=== PATIENT | male | born 1990 | race Caucasian/White ===

== ENCOUNTER 2021-06-24 15:44 | Emergency (ER) | payer OTHER ==
[~2021-06-24] VITALS: Ht 175.3 cm; Wt 75.0 kg
[2021-06-24 18:06] LABS: BASOPHILS % 0.3 % (0.0-2.0); EOSINOPHILS % 0.1 % (0.0-5.0); HEMATOCRIT. 51.5 % (42.0-52.0); HEMOGLOBIN. 17.7 g/dL (14.0-18.0); LYMPHOCYTES % 13.8 % (20.0-50.0); MEAN CORPUSCULAR HEMOGLOBIN 31.2 pg (28.0-32.0); MEAN PLATELET VOLUME 9.1 fl (7.4-10.4); MONOCYTES % 4.6 % (2.0-8.0); NEUTROPHILS % 81.2 % (40.0-76.0); PLATELET 355 x1000/uL (130-400); RED BLOOD CELL COUNT 5.67 mill/uL (4.7-6.1); RED CELL DISTRIBUTION WIDTH 13.5 % (11.6-14.6)
[2021-06-24 18:12] LABS: CHLORIDE 103 mEq/L (98-107)
[2021-06-24 18:15] LABS: ETHANOL BLOOD < 10 mg/dL
[2021-06-24 19:51] VITALS: BP 144/87
== END 2021-06-24 19:52 | disposition home or self-care (01) ==
LOC: ER 15:44
DX: T43.641A Poisoning by ecstasy, accidental (unintentional), initial encounter (principal); R42 Dizziness and giddiness; R53.1 Weakness; G25.1 Drug-induced tremor; F16.188 Hallucinogen abuse with other hallucinogen-induced disorder; R53.81 Other malaise; Z72.89 Other problems related to lifestyle; R03.0 Elevated blood-pressure reading, without diagnosis of hypertension; Y92.89 Other specified places as the place of occurrence of the external cause
CPT/HCPCS: 36415; 80048; 80320; 85025; 93005; 99284; G0480